=== PATIENT | male | born 2000 | race Caucasian/White ===

== ENCOUNTER 2023-09-07 03:18 | Day surgery (SDC) | payer BC ==
[2023-09-07] MEDS ORDERED: Sodium Chloride 0.9% 1,000 ML IV ONE (03:58)
[2023-09-07] MEDS ORDERED: Sodium Chloride 0.9% 10 ML Syringe FLUSH PRN (03:58)
[2023-09-07] MEDS ORDERED: Ondansetron 4 MG/2 ML SDV IVPUSH ONE (03:58)
[2023-09-07] MEDS ORDERED: Sodium Chloride 0.9% 2.5 ML Syringe FLUSH PRN (03:58)
[2023-09-07] MEDS ORDERED: HYDROmorphone 1 MG/ML Syringe IVPUSH ONE ×2 (03:58→05:22)
[2023-09-07 04:10] LABS: BASOPHILS ABSOLUTE AUTO 0.05 K/uL (0.00-0.20); BASOPHILS PERCENT AUTO 0.8 % (0.0-1.0); EOSINOPHILS ABSOLUTE AUTO 0.16 K/uL (0.00-0.45); EOSINOPHILS PERCENT AUTO 2.6 % (0.0-6.0); HEMATOCRIT 41.9 % (42.0-52.0); HEMOGLOBIN 14.9 g/dL (14.0-18.0); IMMATURE GRAN ABSOLUTE AUTO 0.02 K/uL (0.00-0.05); IMMATURE GRAN PERCENT AUTO 0.3 % (0.0-0.4); LYMPHOCYTES ABSOLUTE AUTO 2.54 K/uL (1.00-4.80); LYMPHOCYTES PERCENT AUTO 40.7 % (24.0-44.0); MEAN CORPUSCULAR HEMOGLOBIN 29.9 pg (28.0-32.0); MEAN CORPUSCULAR HGB CONC 35.6 g/dL (32.0-36.0); MEAN CORPUSCULAR VOLUME 84.1 fL (83.0-99.0); MEAN PLATELET VOLUME 10.2 fL (9.4-12.4); MONOCYTES ABSOLUTE AUTO 0.87 K/uL (0.00-0.80); MONOCYTES PERCENT AUTO 13.9 % (0.0-8.0); NEUTROPHILS PERCENT AUTO 41.7 % (41.0-71.0); PLATELET COUNT,PLT 253 K/uL (150-400); RED BLOOD CELL COUNT 4.98 M/uL (4.52-5.90); WHITE BLOOD CELL COUNT,WBC 6.24 K/uL (3.9-11.3)
[2023-09-07 04:24] LABS: APPEARANCE,URINE CLEAR; BILIRUBIN,URINE NEGATIVE (NEGATIVE); COLOR,URINE YELLOW; GLUCOSE,URINE NEGATIVE (NEGATIVE); KETONES,URINE NEGATIVE (NEGATIVE); LEUKOCYTE ESTERASE,URINE NEGATIVE (NEGATIVE); NITRITE,URINE NEGATIVE (NEGATIVE); OCCULT BLOOD,URINE NEGATIVE (NEGATIVE); PROTEIN,URINE NEGATIVE (NEGATIVE); UROBILINOGEN,URINE 0.2 EU/dL (<2.0)
[2023-09-07 04:32] LABS: A/G RATIO 1.3 (0.9-1.6); ALBUMIN 3.8 g/dL (3.4-5.0); BILIRUBIN TOTAL 0.3 mg/dL (0.2-1.0); CALCIUM 8.7 mg/dL (8.5-10.1); CREATININE 1.4 mg/dL (0.8-1.3); EST CRCL DRUG DOSING (CG) 91.95 mL/min; POTASSIUM,K 3.5 mmol/L (3.5-5.1); PROTEIN TOTAL,TP 6.8 g/dL (6.4-8.2)
[2023-09-07] MEDS ORDERED: HYDROmorphone 2 MG/ML Syringe IVPUSH PRN (06:18)
[2023-09-07] MEDS ORDERED: Propofol 200 MG/20 ML SDV ONE ×2 (06:58→07:37)
[2023-09-07] MEDS ORDERED: fentaNYL 100 MCG/2 ML SDV ONE (06:59)
[2023-09-07] MEDS ORDERED: Water For Injection, Sterile 20 ML ONE (06:59)
[2023-09-07] MEDS ORDERED: dexmedeTOMIDine HCl 200 MCG/2 ML SDV ONE (06:59)
[2023-09-07] MEDS ORDERED: Bupivacaine 0.5% 30 ML SDV ONE ×2 (07:02→07:12)
[2023-09-07] MEDS ORDERED: droPERidol 5 MG/2 ML SDV IVPUSH PRN (07:12)
[2023-09-07] MEDS ORDERED: Albuterol 0.083% 2.5 MG/3 ML Neb Soln NEB PRN (07:12)
[2023-09-07] MEDS ORDERED: Metoclopramide 10 MG/2 ML SDV IVPUSH PRN (07:12)
[2023-09-07] MEDS ORDERED: Ondansetron 4 MG/2 ML SDV IVPUSH PRN (07:12)
[2023-09-07] MEDS ORDERED: fentaNYL 50 MCG/ML SDV IVPUSH PRN (07:12)
[2023-09-07] MEDS ORDERED: HYDROmorphone 1 MG/ML Syringe IVPUSH PRN (07:12)
[2023-09-07] MEDS ORDERED: Naloxone 0.4 MG/ML SDV IVPUSH PRN (07:12)
[2023-09-07] MEDS ORDERED: Morphine 2 MG/ML SYRINGE IVPUSH PRN (07:12)
[2023-09-07] MEDS ORDERED: ceFAZolin 1 GM Vial ONE (07:18)
[2023-09-07] MEDS ORDERED: ceFAZolin 2 GM Vial ONE (07:44)
[2023-09-07] MEDS ORDERED: Magnesium Sulfate (4.06 MEQ/ML) 5 GM/10 ML SDV ONE (07:48)
[2023-09-07] MEDS ORDERED: ePHEDrine 50 MG/ML SDV ONE (08:16)
[2023-09-07] MEDS ORDERED: Phenylephrine HCl 0.5 MG/5 ML AMP ONE (08:39)
[2023-09-07] MEDS ORDERED: Ketorolac 30 MG/ML SDV ONE (09:12)
== END 2023-09-07 11:00 | disposition home or self-care (01) ==
LOC: MW.ED 03:18 → MW.SDS 06:23
PROVIDERS: ATTEND Surgery
DX: K40.30 Unilateral inguinal hernia, with obstruction, without gangrene, not specified as recurrent (principal); K46.0 Unspecified abdominal hernia with obstruction, without gangrene; Z79.899 Other long term (current) drug therapy; Z79.51 Long term (current) use of inhaled steroids
CPT/HCPCS: 36415; 49507; 49553; 74176; 80053; 81003; 85025; 96374; 96375; 96376; 99285; J0665; J0690; J1170; J1885; J2371; J2405; J2704; J3010; J3475; J3490; J7030